=== PATIENT | male | born 1970 ===

== ENCOUNTER 2023-01-26 09:15 | Inpatient (IN) | payer OTHER ==
[~2023-01-26] VITALS: Ht 167.6 cm; Wt 76.7 kg
[2023-01-26] MEDS ORDERED: LOSART PO (15:16)
[2023-02-01] MEDS ORDERED: LOSARTAN-HCTZ1 EAC2 (07:53)
== END 2023-02-03 10:33 | disposition home or self-care (01) | DRG 330 ==
LOC: O/R 02-01 05:48 → SURG 02-01 07:00 → SURH 02-01 16:42
PROVIDERS: ADMIT Colon & Rectal Surgery; ATTEND Colon & Rectal Surgery
PROC: 0DBP4ZZ Excision of Rectum, Percutaneous Endoscopic Approach (ICD-10-PCS; 2023-02-01)
PROC: 0DTN4ZZ Resection of Sigmoid Colon, Percutaneous Endoscopic Approach (ICD-10-PCS; principal; 2023-02-01 07:00)
DX: K57.20 Diverticulitis of large intestine with perforation and abscess without bleeding (principal); K92.1 Melena; K66.0 Peritoneal adhesions (postprocedural) (postinfection)